=== PATIENT | female | born 1950 | race Caucasian/White ===

== ENCOUNTER → 2017-05-27 | Outpatient (CLI) | payer OTHER ==
[~2017-05-27] MED LIST: IOPAMIDOL (ISOVUE 370) 100 ML BTL IV ONE
== END ==
LOC: FIMAGING 09:02
PROVIDERS: ATTEND Internal Medicine
DX: K42.9 Umbilical hernia without obstruction or gangrene (principal); K44.9 Diaphragmatic hernia without obstruction or gangrene; K76.89 Other specified diseases of liver
CPT/HCPCS: 74177; Q9967

== ENCOUNTER → 2017-10-31 | Outpatient (CLI) | payer OTHER | LOC: FIMAGING 13:46 | PROVIDERS: ATTEND Internal Medicine | DX: Z12.31 Encounter for screening mammogram for malignant neoplasm of breast (principal); Z13.820 Encounter for screening for osteoporosis; M85.89 Other specified disorders of bone density and structure, multiple sites; Z80.3 Family history of malignant neoplasm of breast ==